=== PATIENT | female | born 1955 | race Caucasian/White ===

== ENCOUNTER 2019-12-24 13:58 | Outpatient (CLI) | payer BC, SELFPAY ==
--- NOTE | 2019-12-24 | ECG_ITS ---
Measurements Intervals [place] Rate: 84 P: 50 DE: 182 QRS: -22 QRSD: 79 T: 52 QT: 359 QTc: 426 Interpretive Statements SINUS RHYTHM BASELINE ARTIFACT- I, AVL NORMAL ECG Electronically Signed On 12-24-2019 15:36:58 CDT by Simon Ascencio D.O.
--- NOTE | ~2019-12-24 | XR_ITS ---
XR chest 2V DATE: 12/24/2019 15:19 INDICATION: Preoperative evaluation. Radial scar of breath. Hypertension. TECHNIQUE: PA and lateral views COMPARISON: None FINDINGS: There is mild discoid atelectasis or scarring at the lung bases. No pulmonary consolidation . No pleural effusion or pulmonary vascular congestion or pneumothorax. No hilar or mediastinal enlar gement. Normal heart size. Osteopenia. IMPRESSION: Mild discoid atelectasis or scarring at the lung bases Reviewed, dictated and finalized at location A.
[2019-12-24 14:38] LABS: Basophils Absolute Auto 0.1 K/mm3 (0.0-0.1); Basophils Percent Auto 0.6 % (0.2-1.2); Eosinophils Absolute Auto 0.1 K/mm3 (0-0.3); Eosinophils Percent Auto 1.1 % (0-4.4); Hematocrit 43.8 % (37.0-47.0); Hemoglobin 14.2 g/dL (12.0-15.0); Immature Granulocyte Absolute 0.03 K/mm3 (0.00-0.031); Immature Granulocyte Percent A 0.4 % (0-0.5); Lymphocytes Absolute Auto 1.82 K/mm3 (0.9-3.2); Lymphocytes Percent Auto 23.2 % (18.3-44.2); Mean Corpuscular HGB Conc 32.4 g/dl (32-36); Mean Corpuscular Hemoglobin 30.3 pg (26-34); Mean Corpuscular Volume 93.4 fl (80-100); Mean Platelet Volume 10.2 fl (7.4-10.4); Monocytes Absolute Auto 0.5 K/mm3 (0.1-0.6); Monocytes Percent Auto 6.8 % (2.6-8.5); Neutrophils Absolute Auto 5.3 K/mm3 (1.3-6.7); Neutrophils Percent Auto 67.9 % (45.5-73.1); Platelet Count Result 260 k/mm3 (150-375); Red Blood Count 4.69 M/mm3 (4.2-5.4); Red Cell Distribution Width 13.1 % (11.5-14.5); White Blood Count 7.8 K/mm3 (4.5-10.0)
[2019-12-24 14:48] LABS: Alanine Aminotransferase 28 U/L (4-35); Albumin Level 4.9 g/dL (3.5-5.1); Alkaline Phosphatase 72 U/L (38-126); Aspartate Amino Transferase 45 U/L (14-36); Blood Urea Nitrogen 14 mg/dL (7-17); Calcium 9.7 mg/dL (8.4-10.2); Carbon Dioxide 33 mmol/L (22-30); Chloride 102 mmol/L (98-107); Estimated Glomerular Filt Rate > 60; Glucose 139 mg/dL (65-105); Potassium 4.4 mmol/L (3.4-5.0); Sodium 141 mmol/L (137-145)
== END 2019-12-24 13:59 | disposition home or self-care (01) ==
PROVIDERS: PCP Family Medicine
DX: N64.89 Other specified disorders of breast (principal); R91.8 Other nonspecific abnormal finding of lung field
CPT/HCPCS: 36415; 71046; 80053; 85025; 93005

== ENCOUNTER → 2020-04-02 10:15 | Outpatient (CLI) | payer BC, SELFPAY ==
--- NOTE | ~2020-04-02 | DEXA_ITS ---
Bone Density Report Name: Balaji Perez Age: 64 Sex: Female Ethnicity: White Date of : 1955 Indication: monitoring treatment; postmenopausal Referring Provider: Michaela, Gloria Fernandez Study: Bone densitometry was performed. Exam Date: April 02, 2020 Accession number: [id number] Bone Density: Region BMD T-score Z-score Classification AP Spine (L1-L4) 1.079 0.3 1.9 Normal Femoral Neck (Left) 0.832 -0.2 1.2 Normal Total Hip (Left) 0.971 0.2 1.3 Normal Femoral Neck (Right) 0.795 -0.5 0.9 Normal Total Hip (Right) 0.929 -0.1 1.0 Normal Total Hip Mean 0.950 0.1 1.2 Normal World Health Organization criteria for BMD impression classify patients as: Normal (T-score at or above -1.0), Osteopenia (T-score between -1.0 and -2.5), or Osteoporosis (T-score at or below -2.5). 10-year Fracture Risk: FRAX not reported because: All T-scores for Spine Total, Hip Total, Femoral Neck at or above -1.0 Treated for osteoporosis Previous Exams: Region Exam Age BMD T-score BMD Change BMD Change Date g/cm2 vs Baseline vs Previous AP Spine(L1-L4) 04/02/2020 64 1.079 0.3 -0.025* 0.014 02/03/2016 60 1.065 0.2 -0.039* -0.071* 01/13/2011 55 1.136 0.8 0.032* -0.001 07/20/2008 52 1.138 0.8 0.033* 0.033* 03/06/2006 50 1.104 0.5 Total Hip(Left) 04/02/2020 64 0.971 0.2 -0.209* -0.074* 02/03/2016 60 1.045 0.8 -0.135* 0.038* 01/13/2011 55 1.007 0.5 -0.173* -0.039* 07/20/2008 52 1.046 0.9 -0.134* -0.134* 03/06/2006 50 1.180 2.0 Total Hip(Right) 04/02/2020 64 0.929 -0.1 -0.228* -0.072* 02/03/2016 60 1.000 0.5 -0.156* -0.026 01/13/2011 55 1.026 0.7 -0.130* -0.006 07/20/2008 52 1.032 0.7 -0.124* -0.124* 03/06/2006 50 1.157 1.8 *Denotes significance at 95% confidence level, LSC for AP Spine = 0.022 g/cm2, LSC for Total Hip = 0.027 g/cm2 Clinical Information Provided by Patient: Is being treated for osteoporosis Has used the following medications: Evista (i.e. raloxifene), Calcium, calcium includes vit D Patient maximum height was 65 Menopause Age: 54 Drinks caffeinated beverages Onset of menses at age 14 Number of children 1 Impression: The patient has normal bone mass. The BMD for t
== END ==
PROVIDERS: PCP Family Medicine; Visit Provider Nurse Practitioner Obstetrics & Gynecology
DX: Z13.820 Encounter for screening for osteoporosis (principal); Z78.0 Asymptomatic menopausal state
CPT/HCPCS: 77080

== ENCOUNTER → 2022-07-06 15:26 | Outpatient (CLI) | payer BC, SELFPAY ==
--- NOTE | ~2022-07-06 | DEXA_ITS ---
Bone Density Report Name: JEAN FLOR Age: 66 Sex: Female Ethnicity: White Date of : 1955 Indication: monitoring treatment; cancer; postmenopausal Referring Provider: Hannah Aquino Study: Bone densitometry was performed. Exam Date: July 06, 2022 Accession number: [id number] Bone Density: Region BMD T-score Z-score Classification AP Spine (L1-L4) 1.050 0.0 1.8 Normal Femoral Neck (Left) 0.842 -0.1 1.4 Normal Total Hip (Left) 0.990 0.4 1.6 Normal Femoral Neck (Right) 0.799 -0.5 1.0 Normal Total Hip (Right) 0.965 0.2 1.4 Normal Total Hip Mean 0.978 0.3 1.5 Normal World Health Organization criteria for BMD impression classify patients as: Normal (T-score at or above -1.0), Osteopenia (T-score between -1.0 and -2.5), or Osteoporosis (T-score at or below -2.5). 10-year Fracture Risk: FRAX not reported because: All T-scores for Spine Total, Hip Total, Femoral Neck at or above -1.0 Treated for osteoporosis Previous Exams: Region Exam Age BMD T-score BMD Change BMD Change Date g/cm2 vs Baseline vs Previous AP Spine(L1-L4) 07/06/2022 66 1.050 0.0 -0.054* -0.029* 04/02/2020 64 1.079 0.3 -0.025* 0.014 02/03/2016 60 1.065 0.2 -0.039* -0.071* 01/13/2011 55 1.136 0.8 0.032* -0.001 07/20/2008 52 1.138 0.8 0.033* 0.033* 03/06/2006 50 1.104 0.5 Total Hip(Left) 07/06/2022 66 0.990 0.4 -0.190* 0.019 04/02/2020 64 0.971 0.2 -0.209* -0.074* 02/03/2016 60 1.045 0.8 -0.135* 0.038* 01/13/2011 55 1.007 0.5 -0.173* -0.039* 07/20/2008 52 1.046 0.9 -0.134* -0.134* 03/06/2006 50 1.180 2.0 Total Hip(Right) 07/06/2022 66 0.965 0.2 -0.192* 0.036* 04/02/2020 64 0.929 -0.1 -0.228* -0.072* 02/03/2016 60 1.000 0.5 -0.156* -0.026 01/13/2011 55 1.026 0.7 -0.130* -0.006 07/20/2008 52 1.032 0.7 -0.124* -0.124* 03/06/2006 50 1.157 1.8 *Denotes significance at 95% confidence level, LSC for AP Spine = 0.022 g/cm2, LSC for Total Hip = 0.027 g/cm2 Clinical Information Provided by Patient: Is being treated for osteoporosis Has used the following medications: Evista (i.e. raloxifene), Vitamin D, Calcium, calcium includes vit D Has the following medical conditions: Cancer Patient m
== END ==
PROVIDERS: PCP Family Medicine; Visit Provider Physician Assistant
DX: Z78.0 Asymptomatic menopausal state (principal)
CPT/HCPCS: 77080

== ENCOUNTER 2024-03-30 08:37 | Emergency (ER) | payer BC, SELFPAY ==
--- NOTE | 2024-03-30 08:52 | ED.GENADULT ---
HPI - General Adult General Stated complaint: cough Related Data Home Medications Medication Instructions Recorded Confirmed Bifidobacterium infantis 4 mg 4 mg PO DAILY 03/17/20 04/08/24 capsule (Align) raloxifene 60 mg tablet 60 mg PO DAILY 03/17/20 04/08/24 clobetasol 0.05 % topical cream 1 applic topical DAILY 03/30/22 04/08/24 pimecrolimus 1 % topical cream 1 applic topical BID 03/30/22 04/08/24 amoxicillin 500 mg-potassium 1 tablet PO Q12H 04/01/24 04/08/24 clavulanate 125 mg tablet (Augmentin) ruxolitinib 1.5 % topical cream 1 applic topical BID 04/01/24 04/08/24 (Opzelura) Allergies Allergy/AdvReac Type Severity Reaction Status Date / Time Sulfa (Sulfonamide Allergy Unknown Unknown Verified 04/08/24 10:56 Antibiotics) Macrolide Antibiotics AdvReac Severe digestive Verified 04/08/24 10:56 upset PMFSH Past Medical History Medical History (Updated 04/08/24 @ 13:32 by Ailyn Wei PA-C) 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 BMI 28.0-28.9,adult Elevated fasting glucose Encounter for wellness examination Endometriosis Fibrocystic disease of both breasts Hiatal hernia Hypercholesterolemia Hyperlipidemia Hypertension Primary hypertension RLS (restless legs syndrome) Sleep apnea Vitiligo Surgical History Surgical History H/O laparoscopy Family History Family History Sibling Family history of hypercholesterolemia Hypertension Mother Hypertension Family history of congestive heart failure Father Acute myocardial infarction Family history of chronic obstructive pulmonary disease Social History Social History Smoking status: Never smoker Second hand tobacco smoke exposure: No Alcohol intake: current Alcohol use details: consumes 1 glass of wine occasionally Substance use: never Substance use type: does not use Lack of Transportation: No Lack of Food: Never True Current Housing: I Have Housing Concerned About Future Housing: No Difficulty Paying Gas/Electric Bills: No Difficulty Paying for Meds: No Currently Unemployed: No Education: Master's Degree or Higher Difficulty w/ Childcare or Family Care: No Living arrangements: with family Occupation/Education: retired Gender identity (if verbalized by the patient): Female Spiritual care concerns: No Agree to blood products: Yes Discharge Plan Discharge Patient Disposition: Home, Self-Care Instructions: Antibiotic Form Prescriptions: No Action raloxifene 60 mg tablet 60 mg PO DAILY Align 4 mg capsule 4 mg PO DAILY omeprazole 10 mg capsule,delayed release(DR/EC) 5 mg PO DAILY Qty: 1 0RF codeine-guaifenesin 10-100 mg/5 mL liquid 10 ml PO Q4-6H PRN (Reason: cough) Qty: 120 0RF clobetasol 0.05 % cream 1 applic topical DAILY pimecrolimus 1 % cream 1 applic topical BID amoxicillin-pot clavulanate [Augmentin] 500-125 mg tablet 1 tablet PO Q12H Opzelura 1.5 % cream 1 applic topical BID rosuvastatin 20 mg tablet 20 mg PO DAILY Qty: 90 3RF lisinopril 10 mg tablet See Rx Instructions .ROUTE .COMPLEX Qty: 90 3RF Dose Instruction: TAKE 1 TABLET(10 MG) BY MOUTH EVERY DAY Rx Instructions: TAKE 1 TABLET(10 MG) BY MOUTH EVERY DAY Follow-up/Referrals: Jill Kelley MD [Primary Care Provider] -
--- NOTE | 2024-03-30 09:29 | PC.NURSE ---
see down time documentation. christophe gonzalez rn.
== END 2024-03-30 09:15 | disposition home or self-care (01) ==
PROVIDERS: Emergency Provider Nurse Practitioner; PCP Family Medicine
DX: J18.9 Pneumonia, unspecified organism (principal); E78.00 Pure hypercholesterolemia, unspecified; E78.5 Hyperlipidemia, unspecified; I10 Essential (primary) hypertension; N80.9 Endometriosis, unspecified; G25.81 Restless legs syndrome; N60.12 Diffuse cystic mastopathy of left breast; N60.11 Diffuse cystic mastopathy of right breast
CPT/HCPCS: 99213; G0463

== ENCOUNTER 2024-07-10 11:28 | Outpatient (CLI) | payer BC, SELFPAY ==
--- NOTE | ~2024-07-10 | DEXA_ITS ---
Bone Density Report Name: JEAN FLOR Age: 68 Sex: Female Ethnicity: White Date of : 1955 Indication: postmenopausal; screening for osteoporosis; Referring Provider: RACHAEL KIM Study: Bone densitometry was performed. Exam Date: July 10, 2024 Accession number: [id number] Bone Density: Region BMD T-score Z-score Classification AP Spine(L1-L4) 1.076 0.3 2.2 Normal Femoral Neck (Left) 0.789 -0.5 1.1 Normal Total Hip (Left) 1.023 0.7 2.0 Normal Femoral Neck (Right) 0.772 -0.7 0.9 Normal Total Hip (Right) 0.969 0.2 1.5 Normal Femoral Neck Mean 0.780 -0.6 1.0 Normal Total Hip Mean 0.996 0.4 1.8 Normal World Health Organization criteria for BMD impression classify patients as: Normal (T-score at or above -1.0), Osteopenia (T-score between -1.0 and -2.5), or Osteoporosis (T-score at or below -2.5). 10-year Fracture Risk: FRAX not reported because: All T-scores for Spine Total, Hip Total, Femoral Neck at or above -1.0 Clinical Information Provided by Patient: Has used the following medications: Evista (i.e. raloxifene) Patient maximum height was 66 Menopause Age: 52 Drinks caffeinated beverages Onset of menses at age 14 Number of children 1 Impression: The patient has normal bone mass. Discussion: BONE DENSITY IS ABOVE THE MINIMUM DESIRABLE LEVEL AT ALL SKELETAL SITES TESTED. This patient?s bone mineral density is above the minimum desirable level (T-score -1.0 or better) at all sites measured. The patient should follow a healthful lifestyle (good nutrition with adequate calcium and vitamin D, and appropriate weight-bearing exercise). Follow-Up: Consider repeating this study in 5 years or sooner if there is some new clinical indication. Reported by: CASPER on 07/10/2024 11:50:00 AM. Reviewed, dictated and finalized at location A.
== END 2024-07-10 11:29 | disposition home or self-care (01) ==
LOC: CHSIMG 11:29
PROVIDERS: PCP Family Medicine; Visit Provider Student in an Organized Health Care Education/Training Program
DX: Z78.0 Asymptomatic menopausal state (principal)
CPT/HCPCS: 77080